=== PATIENT | female | born 1995 | race Caucasian/White ===

== ENCOUNTER 2019-05-09 20:34 | Inpatient (IN) ==
[2019-05-09] MEDS ORDERED: OXYTOCIN 30 UNITS/500 ML BAG IV PRN ×2 (20:56→23:27)
[2019-05-09] MEDS: LACTATED RINGER'S 1,000 ML IV PRN (21:20)
[2019-05-09 21:25] LABS: Hematocrit (blood only) 33.2 % (37-47); Hemoglobin 11.9 g/dL (12.0-16.0); Mean Corpuscular Hgb Conc 35.8 g/dL (32-36); Mean Corpuscular Volume 81.8 fL (80-100); Mean Platelet Volume 9.2 fL (7.4-10.4); Platelet Count 280 K/uL (130-400); RDW Coefficient of Variation 12.9 % (11.5-14.5); Red Blood Count 4.06 M/uL (4.2-5.4); White Blood Count 13.12 K/uL (4.8-10.8)
--- NOTE | 2019-05-09 21:25 | History & Physical Report ---
Date of Service May 09, 2019 Assessment & Plan (1) Normal labor: IUP at term in labor with SPROM anticipate vaginal Present on Admission?: Yes (2) Amniotic fluid leaking: History of Present Illness Primary Care Provider: Praneeth Mixon Patient is a 23 yo white female EDC 05/19/19 who presents with SPROM of clear fluid since about 1800 tonight. now having regular contractions. GBS (-) otherwise uncomplicated . Allergies Allergy/AdvReac Type Severity Reaction Status Date / Time No Known Drug Allergies Allergy Verified 05/02/19 16:33 Home Medications Home Medications Medication Instructions Recorded Confirmed Type vit-iron fum-folic ac 1 tab PO DAILY 04/12/19 05/02/19 History [ Vitamin] Patient History Medical History Asthma Varicella Surgical History History of oral surgery S/P foot surgery S/P shoulder surgery Family History Grandmother (Paternal) Colorectal cancer Diabetes Breast cancer Ovarian cancer Mother Osteoporosis Thyroid disease Social History Preferred Language: Lebanese marital status: Single Feels Safe at Home: Yes Smoking Status: Never smoker Hx Alcohol Use: No Hx Substance Use: No Review of Systems All systems reviewed & are unremarkable except as noted in HPI & below Physical Exam Constitutional: WD/WN, vitals as above Respiratory: normal respiratory effort, lungs clear to auscultation Cardiovascular: RRR, no murmur, no edema Gastrointestinal (Abdomen): normal bowel sounds, soft, nontender, no hepatosplenomegaly Psychiatric: A+Ox3, euthymic affect Genitourinary: Manual OB Exam: + cervical dilation 4 cm, + cervical effacement 100% and + station -1 OB Exam Monitor Tracing: + external FHT monitor used, + external uterine monitor used, + category I and + normal FHT variability Results & Data Vital Signs (Past 12 Hours) Vital Signs Pulse BP 05/09/19 20:40 129 H 132/90 Code Status & VTE Plan VTE Prophylaxis Plan VTE Prophylaxis will be ordered: No
[2019-05-10] MEDS ORDERED: BUPIVACAINE 0.25% 30 ML VIAL ONE (00:36)
[2019-05-10] MEDS ORDERED: ePHEDrine sulfate 50 MG/ML AMP ONE (00:37)
[2019-05-10] MEDS ORDERED: fentaNYL citrate 100 MCG/2 ML VIAL ONE (00:37)
[2019-05-10] MEDS ORDERED: fentaNYL 2MCG/ML ROPIV 1.25MG/ML 100 ML BAG EPI ONE (00:38)
[2019-05-10] MEDS: LACTATED RINGER'S 1,000 ML IV PRN (01:07)
[2019-05-10] MEDS ORDERED: fentaNYL 2MCG/ML ROPIV 1.25MG/ML 100 ML BAG EPI PRN (01:08)
[2019-05-10] MEDS ORDERED: NALBUPHINE HCL INJ 10 MG/ML AMP IV PRN (01:08)
[2019-05-10] MEDS ORDERED: NALOXONE HCL 0.4 MG/1 ML VIAL/CARP IV PRN (01:08)
[2019-05-10] MEDS ORDERED: NALOXONE HCL 1 MG in SODIUM CHLORIDE 0.9% 1000ML 1,000 ML IV PRN (01:08)
[2019-05-10] MEDS ORDERED: ONDANSETRON INJ 2 MG/ML 2 ML VIAL IV PRN (01:08)
[2019-05-10] MEDS ORDERED: DiphenhydrAMINE HCL 50 MG/ML VIAL IV PRN (01:08)
[2019-05-10] MEDS ORDERED: ePHEDrine sulfate 50 MG/ML AMP IV PRN (01:08)
--- NOTE | 2019-05-10 01:11 | Anesthesiology Consultation ---
Date of Service May 10, 2019 Assessment & Plan (1) Encounter for pre-operative examination: Chart Review Chart Review: Patient NOT seen in Pre Admission Testing and Acceptable Risk for Labor Epidural Consults Requested none ASA ASA2 Proposed Anesthesia Anesthesia Type: Labor Epidural and CSE Risk / Benefits Reviewed With: PT / POA / Parent / Guardian, Accepts Plan and Informed Consent Obtained History Height/Weight Height: 5 ft 4 in Weight: 90.718 kg Allergies Allergy/AdvReac Type Severity Reaction Status Date / Time No Known Drug Allergies Allergy Verified 05/02/19 16:33 Medications Home Medications Medication Instructions Recorded Confirmed Last Taken vit-iron fum-folic ac 1 tab PO DAILY 04/12/19 05/09/19 05/06/19 08:00 [ Vitamin] Active Medications Generic Name Dose Route Start Last Admin Trade Name Freq PRN Reason Stop Dose Admin Lactated Ringer's 1,000 mls @ 125 mls/hr 05/09/19 20:56 05/10/19 01:07 Lr IV 05/11/19 20:55 125 mls/hr .Q8H PRN Administration L&D Protocol Protocol Oxytocin 30 units in 500 mls @ 1 mls/hr 05/09/19 23:27 05/10/19 00:30 Pitocin IV 05/11/19 23:26 0.18 units/hr .Q24H PRN 3 mls/hr Labor Induction/Augmentation Titration Protocol 0.06 UNITS/HR NPO Date Last Intake of Fluids: 05/10/19 Time Last Intake of Fluids: 00:30 Date Last Intake of Solids: 05/09/19 Time Last Intake of Solids: 19:30 Past Medical History Medical History Asthma Varicella Exercise / Class Metabolic Activity II 4-5 Yardwork/Stairs/Walk up hill Past Family History Family History Grandmother (Paternal) Colorectal cancer Diabetes Breast cancer Ovarian cancer Mother Osteoporosis Thyroid disease Past Surgical History Surgical History History of oral surgery S/P foot surgery S/P shoulder surgery Past Anesthesia History No Hx of Anesthesia Complications and No Family Hx of Anesthesia Complications History of PONV No Hx of PONV and No Hx of Motion Sickness Social History Smoking Status: Never smoker Hx Alcohol Use: No Hx Substance Use: No substance use type: does not use Review of Systems no chest pain or sob Physical Exam Vital Signs Last Vital Signs Temp 36.7 C 05/09/19 23:48 Pulse 92 H 05/10/19 01:10 Resp 20 05/10/19 00:30 BP 122/82 05/10/19 01:05 Pulse Ox 98 05/10/19 01:10 ENMT Mouth: no TMJ abnormality Thyromental Distance: > or= 3.5 Finger Breadths Mallampati Class: II Neck normal visual inspection Respiratory normal respiratory effort Auscultation: lungs clear to auscultation bilaterally Cardiovascular Rate/Rhythm: regular rate and regular rhythm Musculoskeletal Spine: normal cervical ROM Neurologic moves all extremities Psychiatric Orientation: alert and oriented x 3 Testing Laboratory Results 05/09/19 21:18
[2019-05-10] MEDS ORDERED: DIPHTHERIA/TETANUS/PERTUSSIS 0.5 ML SYR/VIAL IM ONE (04:24)
[2019-05-10] MEDS ORDERED: BENZOCAINE 20% AER SPR 82.5 GM CAN EXT PRN (04:24)
[2019-05-10] MEDS ORDERED: SUPERCREAM 0.870% 15 GM JAR EXT PRN (04:24)
[2019-05-10] MEDS ORDERED: BISACODYL 10 MG SUPP PR PRN (04:24)
[2019-05-10] MEDS ORDERED: OXYTOCIN 30 UNITS/500 ML BAG IV PRN (04:24)
[2019-05-10] MEDS ORDERED: IBUPROFEN 600 MG TAB PO PRN (04:24)
[2019-05-10] MEDS ORDERED: ACETAMINOPHEN 325 MG TAB PO PRN (04:24)
[2019-05-10] MEDS ORDERED: OXYCODONE/ACETAMINOPHEN 5mg/325mg TAB PO PRN (04:24)
[2019-05-10] MEDS ORDERED: HYDROCORTISONE ACETATE 25 MG SUPP PR PRN (04:24)
--- NOTE | 2019-05-10 05:28 | Delivery Summary ---
DATE OF OPERATION: 05/10/2019 The patient is a 23-year-old G1, P0 white female who presented with spontaneous rupture of membranes for clear fluid along with regular contractions. She required Pitocin augmentation after 4 cm dilation, but then under effective epidural analgesia. She progressed to full dilation. She pushed effectively over intact perineum for delivery of a viable female . The rest of the delivered easily, was placed on the mother's abdomen for further attention and drying. The infant was vigorous and crying and moving all 4 limbs. The cord was clamped and cut after approximately 20 seconds. After cord blood was obtained, the placenta was expressed intact with a 3-vessel cord. A first-degree vaginal laceration was repaired with 3-0 chromic in the usual fashion. Bilateral labial abrasions were not bleeding and therefore not repaired. Estimated blood loss was 200 mL. Mother and were doing well after delivery. bleeding was controlled with dilute Pitocin. I attest to the content of the Intraoperative Record and any orders documented therein. Any exception s are noted below.
--- NOTE | 2019-05-10 08:28 | Anesthesia Procedure Note ---
Date of Service May 10, 2019 Anesthesia Post Epidural Note Vital Signs Vital Signs: Temp Pulse Resp BP Pulse Ox 37.1 C 92 H 20 118/73 98 05/10/19 06:03 05/10/19 06:03 05/10/19 06:03 05/10/19 06:03 05/10/19 04:15 Pain Intensity Bilateral Abdomen: Pain Intensity: 0 Episiotomy/Laceration: Pain Intensity: 0 Notes Mental Status: alert / awake / arousable and participated in evaluation Patient Amnestic to Procedure: No Nausea / Vomiting: adequately controlled Pain: adequately controlled Airway Patency, RR, SpO2: stable & adequate BP & HR: stable & adequate Hydration State: stable & adequate Neuraxial Anesthesia: was administered and sensory block resolved Anesthetic Complications: no major complications apparent and Pt Satisfied with anesthetic care Epidural: Removed without complications and With tip intact
[2019-05-10] MEDS: PRENATAL VITAMIN 1 TAB PO SCH (08:32)
[2019-05-10] MEDS: DOCUSATE SODIUM 100 MG CAP PO SCH ×2 (08:32→21:12)
--- NOTE | 2019-05-11 06:54 | Obstetrical Progress Note ---
Date of Service <Erick Le DO - Last Filed: 05/11/19 06:54> May 11, 2019 Assessment & Plan <DO Rita Amaro Last Filed: 05/11/19 06:54> (1) Normal labor: -PPD#1 -Vitals reviewed, WNL (Tmax 37.1) - GBS -, Blood Type B+ - Clinically stable. - Feels well today. Eating well, voiding well, ambulating well. - Pain well controlled. - Routine post- care - Questions answered this morning. Day #:: 1 Subjective <DO Rita Amaro Last Filed: 05/11/19 06:54> Ambulation: ambulating normally Voiding: no voiding problems Passing Gas:: Yes (passing stool) Diet Tolerance:: regular diet Lochia:: Moderate Feeding Type:: breast feeding Current Pain Level(1-10): 0 Patient is a 23 PPD#1. Patient states that she is feeling well today and that her pain is well controlled. She has no other complaints at this time. Constitutional: no fever and no chills Respiratory: no cough, no dyspnea and no wheezing Cardiovascular: + edema; no chest pain, no dyspnea, no palpitations and no calf pain Breast: no breast pain Gastrointestinal: no abdominal pain, no nausea and no vomiting Genitourinary (female): no dysuria and no difficulty urinating Neurologic: no headache(s) Physical Exam <DO Rita Amaro Last Filed: 05/11/19 06:54> Constitutional WD/WN, vitals as above Respiratory normal respiratory effort, lungs clear to auscultation Cardiovascular Rate/Rhythm: regular rate and regular rhythm Heart Sounds: normal S1 and normal S2; no click, no gallop, no murmur and no cardiac rub Extremities: + edema (+1); no calf tenderness Gastrointestinal (Abdomen) Inspection/Auscultation: abdomen normal to inspection and normal bowel sounds Percussion/Palpation: + abdomen tender (Slight tenderness to palpation of lower quadrants of abdomen) and abdomen soft Genitourinary OB Exam Abdomen: + fundal height Fundus: + firm and + relation to umbilicus (1cm below); not tender and not boggy Results & Data <DO Rita Amaro Last Filed: 05/11/19 06:54> Vital Signs (Past 12 Hours) Vital Signs Temp Pulse Resp BP 05/11/19 04:00 36.8 C 65 17 130/81 05/10/19 23:30 36.9 C 80 18 128/82 05/10/19 19:50 36.7 C 104 H 18 140/94 Medications Administered Current Inpatient Medications Acetaminophen (Tylenol) 650 mg PO Q6H PRN PRN Reason: Pain/MADSEN/Fever Stop: 06/09/19 04:23 Benzocaine (Dermoplast Pain Relieving [place]) 1 appln EXT PRN PRN PRN Reason: Perineal Discomfort Stop: 06/09/19 04:23 Bisacodyl (Dulcolax) 10 mg ND DAILY PRN PRN Reason: No BM on 2nd post- day Stop: 06/09/19 04:23 Bisacodyl (Dulcolax) 5 mg PO 1999 [facility] Stop: 05/11/19 20:01 Cocaine HCl (Supercream 0.870%) 1 gm EXT BID PRN PRN Reason: Hemorrhoidal Inflammation Stop: 05/24/19 04:23 Docusate Sodium (Colace) 100 mg PO DAILY@08,21 [facility] Stop: 06/09/19 07:59 Last Admin: 05/10/19 21:12 Dose: 100 mg Documented by: Hydrocortisone (Anusol Hc) 25 mg ND BID PRN PRN Reason: Hemorrhoidal Inflammation Stop: 06/09/19 04:23 Lactated Ringer's (Lr) 1,000 mls @ 125 mls/hr IV .Q8H PRN; Protocol PRN Reason: L&D Protocol Stop: 05/11/19 20:55 Last Infusion: 05/10/19 05:30 Dose: Infused Documented by: Oxytocin (Pitocin) 30 units in 500 mls @ 333.333 mls/hr IV .Q1H30M PRN; Protocol PRN Reason: Bleeding Control Stop: 06/09/19 04:23 Ibuprofen (Motrin) 600 mg PO Q4H PRN PRN Reason: Pain/MADSEN/Cramping/Fever Stop: 06/09/19 04:23 Oxycodone/Acetaminophen (Percocet 5mg/325mg) 1 tab PO Q4H PRN PRN Reason: Pain not relieved by... Stop: 05/24/19 04:23 Prenat Multivit/[place]/Iron/Folic Ac ( Vitamin) 1 tab PO DAILY@08 [facility] Stop: 06/09/19 07:59 Last Admin: 05/10/19 08:32 Dose: 1 tab Documented by: <Juan Felix Jr, MD, FACOG - Last Filed: 05/11/19 07:40> Co-Signing Physician Notes Resident Physician Supervision Note: I was present with Dr. Sol during the history and exam. I discussed the case with the resident and agree with the findings and plan as documented in the note. Any exceptions or clarifications are listed here: Routine care, doing well Documented By: Juan Felix Jr, MD, FACOG Resident Activity Tracking <Erick Le DO - Last Filed: 05/11/19 06:54> Resident Involvement: Resident Care Provided Care Provided: OB Delivery
[2019-05-11 07:12] LABS: Hemoglobin 11.5 g/dL (12.0-16.0); Mean Corpuscular Hgb Conc 33.8 g/dL (32-36); Mean Corpuscular Volume 82.9 fL (80-100); Platelet Count 224 K/uL (130-400); RDW Coefficient of Variation 13.1 % (11.5-14.5); RDW Standard Deviation 39.6 fL (36.4-46.3); White Blood Count 13.55 K/uL (4.8-10.8)
[2019-05-11] MEDS: PRENATAL VITAMIN 1 TAB PO SCH (08:56)
[2019-05-11] MEDS: DOCUSATE SODIUM 100 MG CAP PO SCH ×2 (08:56→20:50)
[2019-05-11] MEDS ORDERED: BISACODYL 5 MG TABEC PO SCH (20:00)
--- NOTE | 2019-05-12 06:19 | Obstetrical Progress Note ---
Date of Service <Erick Le DO - Last Filed: 05/12/19 06:19> May 12, 2019 Assessment & Plan <DO Rita Amaro Last Filed: 05/12/19 06:19> (1) Normal labor: -PPD#2 -Vitals reviewed, WNL (Tmax 36.9) - GBS -, Blood Type B+ - Clinically stable. - Feels well today. Eating well, voiding well, ambulating well. - Pain well controlled. - Routine post- care - Questions answered this morning. - Counseled for discharge, follow up, and medications. Day #:: 2 Subjective <Erick Le DO - Last Filed: 05/12/19 06:19> Ambulation: ambulating normally Voiding: no voiding problems Passing Gas:: Yes Diet Tolerance:: regular diet Lochia:: Small Feeding Type:: breast feeding Current Pain Level(1-10): 0 Patient is a 23 PPD#2. Patient states that she is feeling well today and that her pain is well controlled. She has no other complaints at this time. Constitutional: no fever and no chills Respiratory: no cough, no dyspnea and no wheezing Cardiovascular: no chest pain, no dyspnea, no palpitations, no edema and no calf pain Breast: no breast pain Gastrointestinal: no abdominal pain, no nausea and no vomiting Genitourinary (female): no dysuria and no difficulty urinating Neurologic: no headache(s) Physical Exam <DO Rita Amaro Last Filed: 05/12/19 06:19> Constitutional WD/WN, vitals as above Respiratory normal respiratory effort, lungs clear to auscultation Cardiovascular Rate/Rhythm: regular rate and regular rhythm Heart Sounds: normal S1 and normal S2; no click, no gallop, no murmur and no cardiac rub Extremities: no calf tenderness and no edema Gastrointestinal (Abdomen) Inspection/Auscultation: abdomen normal to inspection and normal bowel sounds; abdomen not distended Percussion/Palpation: abdomen soft; abdomen nontender Genitourinary OB Exam Abdomen: + fundal height Fundus: + firm and + relation to umbilicus (2.5cm below); not tender and not boggy Results & Data <DO Rita Amaro Last Filed: 05/12/19 06:19> Vital Signs (Past 12 Hours) Vital Signs Temp Pulse Resp BP BP Pulse Ox 05/11/19 23:25 36.3 C L 88 16 120/92 97 05/11/19 19:18 36.4 C L 78 20 133/95 132/87 98 Laboratory Results Abnormal lab results 05/11/19 Range/Units 06:56 WBC 13.55 H (4.8-10.8) K/uL RBC 4.10 L (4.2-5.4) M/uL Hgb 11.5 L (12.0-16.0) g/dL Hct 34.0 L (37-47) % Medications Administered Current Inpatient Medications Acetaminophen (Tylenol) 650 mg PO Q6H PRN PRN Reason: Pain/MADSEN/Fever Stop: 06/09/19 04:23 Benzocaine (Dermoplast Pain Relieving [place]) 1 appln EXT PRN PRN PRN Reason: Perineal Discomfort Stop: 06/09/19 04:23 Last Admin: 05/11/19 21:12 Dose: 82.5 appln Documented by: Bisacodyl (Dulcolax) 10 mg DE DAILY PRN PRN Reason: No BM on 2nd post- day Stop: 06/09/19 04:23 Cocaine HCl (Supercream 0.870%) 1 gm EXT BID PRN PRN Reason: Hemorrhoidal Inflammation Stop: 05/24/19 04:23 Docusate Sodium (Colace) 100 mg PO DAILY@08,21 [facility] Stop: 06/09/19 07:59 Last Admin: 05/11/19 20:50 Dose: 100 mg Documented by: Hydrocortisone (Anusol Hc) 25 mg [place] BID PRN PRN Reason: Hemorrhoidal Inflammation Stop: 06/09/19 04:23 Oxytocin (Pitocin) 30 units in 500 mls @ 333.333 mls/hr IV .Q1H30M PRN; Protocol PRN Reason: Bleeding Control Stop: 06/09/19 04:23 Ibuprofen (Motrin) 600 mg PO Q4H PRN PRN Reason: Pain/MADSEN/Cramping/Fever Stop: 06/09/19 04:23 Oxycodone/Acetaminophen (Percocet 5mg/325mg) 1 tab PO Q4H PRN PRN Reason: Pain not relieved by... Stop: 05/24/19 04:23 Prenat Multivit/[place]/Iron/Folic Ac ( Vitamin) 1 tab PO DAILY@08 [facility] Stop: 06/09/19 07:59 Last Admin: 05/11/19 08:56 Dose: 1 tab Documented by: <Martha Olguin MD, FACOG - Last Filed: 05/12/19 07:46> Co-Signing Physician Notes Resident Physician Supervision Note: I interviewed and examined the patient. Discussed with Dr. Le and agree with findings and plan as documented in the note. Any exceptions or clarifications are listed here: Doing well. Plan d/c. Instructions given. Documented By: Martha Olguin MD, FACOG Resident Activity Tracking <Erick Le DO - Last Filed: 05/12/19 06:19> Resident Involvement: Resident Care Provided Care Provided: OB Delivery
[2019-05-12 06:36] LABS: Hematocrit (blood only) 34.7 % (37-47); Hemoglobin 11.7 g/dL (12.0-16.0)
[2019-05-12] MEDS: DOCUSATE SODIUM 100 MG CAP PO SCH (08:47)
[2019-05-12] MEDS: PRENATAL VITAMIN 1 TAB PO SCH (08:47)
== END 2019-05-12 11:20 | disposition home or self-care (01) | DRG 807 ==
LOC: OPB 20:34 → 4S1 20:35 → 4N 05-10 06:13
DX: O70.0 First degree perineal laceration during delivery; Z37.0 Single live birth